=== PATIENT | female | born 1985 | race Native Hawaiian/Other Pacific Islander ===

== ENCOUNTER 2017-03-01 09:19 | Outpatient (CLI) | payer BC ==
[~2017-03-01 09:19] MED LIST: ADIPEX PO; BIRTH CONTROL; CELEXA20 MG PO
== END 2017-03-01 19:24 | disposition home or self-care (01) ==
LOC: CT 09:19
DX: R10.84 Generalized abdominal pain (principal); R82.99 Other abnormal findings in urine; R30.0 Dysuria; R31.9 Hematuria, unspecified; N20.0 Calculus of kidney

== ENCOUNTER 2022-10-12 13:35 | Outpatient (CLI) | payer BC | END 2022-10-12 19:36 | disposition home or self-care (01) | LOC: RAD 13:35 | PROVIDERS: ATTEND Physician Assistant | DX: M25.521 Pain in right elbow (principal) ==